=== PATIENT | male | born 1940 | race Caucasian/White ===

== ENCOUNTER 2016-12-17 10:26 | Emergency (ER) | payer OTHER ==
[2016-12-17] MEDS ORDERED: Sodium Chloride 0.9% 10 ML Syringe FLUSH PRN (10:44)
[2016-12-17] MEDS ORDERED: Sodium Chloride 0.9% 1,000 ML IV SCH (10:45)
[2016-12-17] MEDS ORDERED: Atropine 0.1 MG/ML 10 ML Syringe ONE (10:58)
--- NOTE | 2016-12-17 11:19 | EDM.PDOC ---
ED HPI GENERAL MEDICAL PROBLEM - General Chief Complaint: Chest Pain Stated Complaint: CHEST PAIN Time Seen by Provider: 12/17/16 10:32 Source of Information: Reports: Patient, RN Notes Reviewed - History of Present Illness INITIAL COMMENTS - FREE TEXT/NARRATIVE: 76-year-old gentleman resents to our ED this morning with dizziness and shortness of breath. He had been out for his usual morning walk and had already walked about 2 miles with no unusual symptoms and then onset about one hour ago of shortness of breath and dizziness. When hooked to monitor worker second degree heart block was apparent. He has no chest pain with this but continues to feel somewhat lightheaded and dizzy. Continues to feel mildly short of breath. Denies history for hypertension diabetes or known coronary artery disease. Does not smoke. He is never had anything of this nature before. He is not on any hypertensive or cardiac meds at this time. - Related Data Allergies Allergy/AdvReac Type Severity Reaction Status Date / Time No Known Allergies Allergy Verified 12/17/16 10:39 Home Meds: Home Meds Meloxicam [Mobic] 7.5 mg PO DAILY 12/17/16 [History] Past Medical History HEENT History: Reports: Impaired Vision Gastrointestinal History: Reports: GERD Social & Family History - Tobacco Use Smoking Status *Q: Current Every Day Smoker Years of Tobacco use: 33 Packs/Tins Daily: 0.1 - Caffeine Use Caffeine Use: Reports: Coffee ED ROS GENERAL - Review of Systems Review Of Systems: See Below Constitutional: Denies: Fever, Chills, Diaphoresis HEENT: Reports: No Symptoms Respiratory: Reports: Shortness of Breath. Denies: Pleuritic Chest Pain Cardiovascular: Denies: Chest Pain GI/Abdominal: Denies: Abdominal Pain, Nausea, Vomiting Musculoskeletal: Denies: Neck Pain, Shoulder Pain, Arm Pain, Back Pain Skin: Reports: No Symptoms Neurological: Reports: Dizziness, Weakness. Denies: Numbness, Tingling, Trouble Speaking (Mild generalized) ED EXAM, GENERAL - Physical Exam Exam: See Below General Appearance: Alert, Mild Distress Eye Exam: Bilateral Eye: PERRL Throat/Mouth: Normal Inspection, Normal Oropharynx Head: Atraumatic. No: Facial Swelling Neck: Supple, Full Range of Motion, Other (No JVD) Respiratory/Chest: No Respiratory Distress, Lungs Clear, Normal Breath Sounds Cardiovascular: Bradycardia GI/Abdominal: Soft, Non-Tender. No: Guarding Back Exam: No: CVA Tenderness (L), CVA Tenderness (R) Extremities: Normal Inspection. No: Pedal Edema, Leg Pain Neurological: Alert, Oriented, No Motor/Sensory Deficits Skin Exam: Warm, Dry, Normal Color EKG INTERPRETATION EKG Date: 12/17/16 Rhythm: Other (Bradycardia with 2-1 AV block) [place]: Normal P-Wave: Present QRS: RBBB ST-T: Normal Course - Vital Signs Last Recorded V/S: Last Vital Signs Temp 97.8 F 12/17/16 10:30 Pulse 44 L 12/17/16 10:30 Resp 16 12/17/16 10:30 BP 145/63 H 12/17/16 10:30 Pulse Ox 98 12/17/16 10:30 - Orders/Labs/Meds Orders: Active Orders 24 hr Category Date Time Status EKG 12 Lead [EKG Documentation Completion] [RC] STAT Care 12/17/16 10:43 Active Peripheral IV Care [RC] . DIRECTED Care 12/17/16 10:44 Active Chest 1V Frontal [CR] Stat Exams 12/17/16 10:43 Taken Sodium Chloride 0.9% [Normal Saline] 1,000 ml Med 12/17/16 10:45 Active IV ONETIME Sodium Chloride 0.9% [Saline Flush] Med 12/17/16 10:44 Active 10 ml FLUSH ASDIRECTED PRN Peripheral IV Insertion Adult [OM.PC] Stat Oth 12/17/16 10:44 Ordered Medication Orders Sodium Chloride (Normal Saline) 1,000 mls @ 999 mls/hr IV ONETIME [facility] Last Admin: 12/17/16 10:46 Dose: 999 mls/hr Sodium Chloride (Saline Flush) 10 ml FLUSH ASDIRECTED PRN PRN Reason: Keep Vein Open Last Admin: 12/17/16 10:47 Dose: 10 ml Labs: Laboratory Tests 12/17/16 12/17/16 Range/Units 10:35 10:43 WBC 9.30 H (4.23-9.07) K/mm3 RBC 4.37 L (4.63-6.08) M/mm3 Hgb 14.0 (13.7-17.5) gm/L Hct 42.6 (40.1-51.0) % MCV 97.5 H (79.0-92.2) fl MCH 32.0 (25.7-32.2) pg MCHC 32.9 (32.2-35.5) g/dl RDW Std Deviation 49.7 H (35.1-43.9) fL Plt Count 338 H (163-337) K/mm3 MPV 11.5 (9.4-12.3) fl Neut % (Auto) 66.1 (34.0-67.9) % Lymph % (Auto) 21.5 L (21.8-53.1) % [place] % (Auto) 9.2 (5.3-12.2) % Eos % (Auto) 2.5 (0.8-7.0) Baso % (Auto) 0.3 (0.1-1.2) % Neut # (Auto) 6.14 H (1.78-5.38) K/mm3 Lymph # (Auto) 2.00 (1.32-3.57) K/mm3 [place] # (Auto) 0.86 H (0.30-0.82) K/mm3 Eos # (Auto) 0.23 (0.04-0.54) K/mm3 Baso # (Auto) 0.03 (0.01-0.08) K/mm3 Sodium 140 (136-145) mEq/L Potassium 4.2 (3.5-5.1) mEq/L Chloride 106 (98-107) mEq/L Carbon Dioxide 27 (21-32) mEq/L Anion Gap 11.2 (5-15) BUN 12 (7-18) mg/dL Creatinine 1.3 (0.7-1.3) mg/dL Est Cr Clr Drug Dosing 51.47 mL/min Estimated GFR (MDRD) 54 (>60) mL/min BUN/Creatinine Ratio 9.2 L (14-18) Glucose 91 (83-115) mg/dL Calcium 8.9 (8.5-10.1) mg/dL Total Bilirubin 0.8 (0.2-1.0) mg/dL AST 52 H (15-37) U/L ALT 50 (16-63) U/L Alkaline Phosphatase 62 (46-116) U/L Troponin I < 0.017 (0.00-0.056) ng/mL Total Protein 6.7 (6.4-8.2) g/dl Albumin 4.1 (3.4-5.0) g/dl Globulin 2.6 gm/dL Albumin/Globulin Ratio 1.6 (1-2) Meds: Medications Generic Name Dose Route Start Last Admin Trade Name Freq PRN Reason Stop Dose Admin Sodium Chloride 1,000 mls @ 999 mls/hr 12/17/16 10:45 12/17/16 10:46 Normal Saline IV 999 mls/hr ONETIME CARLOS A Administration Sodium Chloride 10 ml 12/17/16 10:44 12/17/16 10:47 Saline Flush FLUSH 10 ml ASDIRECTED PRN Administration Keep Vein Open Discontinued Medications Generic Name Dose Route Start Last Admin Trade Name Freq PRN Reason Stop Dose Admin Atropine Sulfate Confirm 12/17/16 10:58 Atropine 0.1 Mg/Ml Administered 12/17/16 10:59 Dose 1 mg .ROUTE .[facility] ONE - Re-Assessments/Exams Free Text/Narrative Re-Assessment/Exam: 12/17/16 11:35, patient remains in second-degree heart block with rate running 38-40 for the most part. The block is fairly steady 2-1. He continues to have no chest pain. Pressure continues in the 130s to low 140s systolic. He needs a pacemaker. I discussed this with Dr. Ugalde, Hospitalist electronic device repairer for [facility] who does accept patient in transfer. He has dropped his rate down to about 35 on a couple of occasions while working on transfer arrangements. Due to sudden onset and potential for more severe heart block I am going to send him by [facility] helicopter. Departure - Departure Time of Disposition: 11:40 Disposition: Home, Self-Care 01 Condition: Serious Clinical Impression: Second degree heart block Referrals: Citlalli Montes DO [Primary Care Provider] - Forms: ED Department Discharge - My Orders Last 24 Hours: My Active Orders 12/17/16 10:43 EKG 12 Lead [EKG Documentation Completion] [RC] STAT Chest 1V Frontal [CR] Stat 12/17/16 10:44 Peripheral IV Care [RC] . DIRECTED Sodium Chloride 0.9% [Saline Flush] 10 ml FLUSH ASDIRECTED PRN Peripheral IV Insertion Adult [OM.PC] Stat 12/17/16 10:45 Sodium Chloride 0.9% [Normal Saline] 1,000 ml IV ONETIME - Assessment/Plan Last 24 Hours: My Active Orders 12/17/16 10:43 EKG 12 Lead [EKG Documentation Completion] [RC] STAT Chest 1V Frontal [CR] Stat 12/17/16 10:44 Peripheral IV Care [RC] . DIRECTED Sodium Chloride 0.9% [Saline Flush] 10 ml FLUSH ASDIRECTED PRN Peripheral IV Insertion Adult [OM.PC] Stat 12/17/16 10:45 Sodium Chloride 0.9% [Normal Saline] 1,000 ml IV ONETIME
--- NOTE | 2016-12-17 15:15 | CR ---
Chest: Frontal view of the chest was obtained. Comparison: No previous study. Heart size and mediastinum are normal. Lungs are clear. Old healed left clavicle fracture is noted. Mild inferior spurring is seen within the right acromioclavicular joint. Impression: 1. Incidental findings. Nothing acute is appreciated on frontal chest x-ray. Diagnostic code #2
[2016-12-17 16:00] VITALS: BP 142/62
== END 2016-12-17 11:43 | disposition home or self-care (01) ==
LOC: JD.ED 10:26
DX: I44.1 Atrioventricular block, second degree (principal); K21.9 Gastro-esophageal reflux disease without esophagitis; F17.210 Nicotine dependence, cigarettes, uncomplicated
CPT/HCPCS: 36415; 71010; 80053; 84484; 85025; 93005; 96360; 99285; J7040; J7050

== ENCOUNTER 2025-01-01 14:45 | Inpatient (IN) | payer MEDICARE, OTHER ==
[2025-01-01 15:33] LABS: BASOPHILS ABSOLUTE AUTO 0.1 K/mm3 (0.0-0.2); BASOPHILS PERCENT AUTO 0.6 % (0.0-1.0); EOSINOPHILS ABSOLUTE AUTO 0.1 K/mm3 (0.0-0.4); EOSINOPHILS PERCENT AUTO 1.3 % (0.0-6.0); IMMATURE GRAN ABSOLUTE AUTO 0.26 K/mm3 (0.00-0.05); IMMATURE GRAN PERCENT AUTO 2.7 % (0.0-0.4); LYMPHOCYTES ABSOLUTE AUTO 1.7 K/mm3 (1.0-4.8); LYMPHOCYTES PERCENT AUTO 17.3 % (24.0-44.0); MEAN PLATELET VOLUME 10.4 fl (9.4-12.4); MONOCYTES ABSOLUTE AUTO 2.7 K/mm3 (0.0-0.8); MONOCYTES PERCENT AUTO 27.9 % (0.0-8.0); NEUTROPHILS ABSOLUTE AUTO 4.8 K/mm3 (1.8-7.7); NEUTROPHILS PERCENT AUTO 50.2 % (41.0-71.0); NRBC ABSOLUTE 0.08 (0.00-0.02); NRBC PERCENT 0.8 % (0.0-0.2); PLATELET COUNT,PLT 215 K/mm3 (150-400); RED BLOOD CELL COUNT 4.10 M/mm3 (4.52-5.90); WHITE BLOOD CELL COUNT,WBC 9.59 K/mm3 (3.9-11.3)
[2025-01-01 15:53] LABS: A/G RATIO 0.9 (1-2); ALANINE AMINOTRANSFERASE,ALT 35 U/L (16-63); ASPARTATE AMNIOTRANSFERASE,AST 28 U/L (15-37); BILIRUBIN TOTAL 0.5 mg/dL (0.2-1.0); BLOOD UREA NITROGEN,BUN 46 mg/dL (7-18); CARBON DIOXIDE,CO2 28 mEq/L (21-32); CHLORIDE,CL 101 mEq/L (98-107); CREATININE 1.3 mg/dL (0.7-1.3); ESTIMATED GFR 55 mL/min (>60); GLUCOSE RANDOM 109 mg/dL (70-99); POTASSIUM,K 4.6 mEq/L (3.5-5.1); PROTEIN TOTAL,TP 6.8 g/dl (6.4-8.2); SODIUM,NA 140 mEq/L (136-145)
[2025-01-01 15:55] LABS: LACTIC ACID 1.0 mmol/L (0.4-2.0)
[2025-01-01] MEDS: Iopamidol 755 Mg/ML 100 ML Bottle IVPUSH ONE (16:48)
[2025-01-01] MEDS: Sodium Chloride 0.9% 10 ML Syringe FLUSH PRN (16:49)
[2025-01-01] MEDS: Furosemide 20 MG/2 ML VIAL IVPUSH ONE (17:40)
[2025-01-01 18:10] LABS: APPEARANCE,URINE CLEAR (Clear); GLUCOSE,URINE NEGATIVE (Negative); OCCULT BLOOD,URINE TRACE-LYSED (Negative)
[2025-01-01 18:16] LABS: COARSE GRANULAR CASTS,URINE 0-5 /hpf (0-5); EPITHELIAL CELLS,URINE 0-5 /hpf (0-5)
[2025-01-01] MEDS ORDERED: Ondansetron 4 MG/2 ML SDV IV PRN (18:36)
[2025-01-01] MEDS ORDERED: Naloxone 0.4 MG/ML SDV IVPUSH PRN (18:36)
[2025-01-01] MEDS ORDERED: Sennosides/Docusate Sodium 50-8.6 MG Tab PO PRN (18:36)
[2025-01-01] MEDS ORDERED: hydrALAZINE 20 MG/ML SDV IVPUSH PRN (18:41)
[2025-01-01] MEDS ORDERED: Labetalol 100 MG/20 ML MDV IVPUSH PRN (18:41)
[2025-01-01] MEDS: Sodium Chloride 3% Inhalation Soln 4 ML Neb NEB SCH (20:10)
[2025-01-02 04:13] LABS: BASOPHILS ABSOLUTE AUTO 0.1 K/mm3 (0.0-0.2); BASOPHILS PERCENT AUTO 0.6 % (0.0-1.0); EOSINOPHILS ABSOLUTE AUTO 0.1 K/mm3 (0.0-0.4); EOSINOPHILS PERCENT AUTO 0.9 % (0.0-6.0); IMMATURE GRAN ABSOLUTE AUTO 0.31 K/mm3 (0.00-0.05); IMMATURE GRAN PERCENT AUTO 3.2 % (0.0-0.4); LYMPHOCYTES ABSOLUTE AUTO 1.7 K/mm3 (1.0-4.8); LYMPHOCYTES PERCENT AUTO 17.1 % (24.0-44.0); MEAN PLATELET VOLUME 10.7 fl (9.4-12.4); MONOCYTES ABSOLUTE AUTO 2.1 K/mm3 (0.0-0.8); MONOCYTES PERCENT AUTO 21.7 % (0.0-8.0); NEUTROPHILS ABSOLUTE AUTO 5.5 K/mm3 (1.8-7.7); NEUTROPHILS PERCENT AUTO 56.5 % (41.0-71.0); NRBC ABSOLUTE 0.07 (0.00-0.02); NRBC PERCENT 0.7 % (0.0-0.2); PLATELET COUNT,PLT 198 K/mm3 (150-400); RED BLOOD CELL COUNT 3.75 M/mm3 (4.52-5.90); WHITE BLOOD CELL COUNT,WBC 9.79 K/mm3 (3.9-11.3)
[2025-01-02 04:29] LABS: A/G RATIO 0.9 (1-2); ALANINE AMINOTRANSFERASE,ALT 30.0 U/L (16-63); ASPARTATE AMNIOTRANSFERASE,AST 22.0 U/L (15-37); BILIRUBIN TOTAL 0.6 mg/dL (0.2-1.0); BLOOD UREA NITROGEN,BUN 42.0 mg/dL (7-18); CARBON DIOXIDE,CO2 31.0 mEq/L (21-32); CHLORIDE,CL 99.0 mEq/L (98-107); CREATININE 1.3 mg/dL (0.7-1.3); EST CRCL DRUG DOSING (CG) 36.66 mL/min; ESTIMATED GFR 55.0 mL/min (>60); GLUCOSE RANDOM 123.0 mg/dL (70-99); PHOSPHORUS 4.1 mg/dL (2.6-4.7); POTASSIUM,K 4.1 mEq/L (3.5-5.1); PROTEIN TOTAL,TP 6.1 g/dl (6.4-8.2); SODIUM,NA 138.0 mEq/L (136-145)
[2025-01-02] MEDS: Magnesium Sulf/Wat 4 GM/50 mL 4 GM in Premix Bag 1 BAG IV ONE (10:39)
[2025-01-02] MEDS: Iopamidol 612 MG/ML 100 ML Bottle IVPUSH ONE (10:53)
[2025-01-03 09:47] LABS: INTACT PTH 7.0 pg/mL (15-65)
[2025-01-04] MEDS: Amoxicillin/Clavulanate K 875-125 MG Tab PO SCH (12:46)
[2025-01-04 19:46] LABS: HIV 1,2 COMBO AG/AB CIA W/RFLX Negative (Negative)
[2025-01-05 14:46] LABS: PTH-RELATED PEPTIDE LC-MS/MS 2.8 pmol/L (0.0-2.3)
[2025-01-08 06:03] LABS: BASOPHILS ABSOLUTE AUTO 0.1 K/mm3 (0.0-0.2); BASOPHILS PERCENT AUTO 0.7 % (0.0-1.0); EOSINOPHILS ABSOLUTE AUTO 0.2 K/mm3 (0.0-0.4); EOSINOPHILS PERCENT AUTO 1.3 % (0.0-6.0); IMMATURE GRAN ABSOLUTE AUTO 0.99 K/mm3 (0.00-0.05); IMMATURE GRAN PERCENT AUTO 6.2 % (0.0-0.4); LYMPHOCYTES ABSOLUTE AUTO 1.8 K/mm3 (1.0-4.8); LYMPHOCYTES PERCENT AUTO 11.3 % (24.0-44.0); MEAN PLATELET VOLUME 10.4 fl (9.4-12.4); MONOCYTES ABSOLUTE AUTO 3.7 K/mm3 (0.0-0.8); MONOCYTES PERCENT AUTO 23.1 % (0.0-8.0); NEUTROPHILS ABSOLUTE AUTO 9.2 K/mm3 (1.8-7.7); NEUTROPHILS PERCENT AUTO 57.4 % (41.0-71.0); NRBC ABSOLUTE 0.14 (0.00-0.02); NRBC PERCENT 0.9 % (0.0-0.2); PLATELET COUNT,PLT 182 K/mm3 (150-400); RED BLOOD CELL COUNT 3.76 M/mm3 (4.52-5.90); WHITE BLOOD CELL COUNT,WBC 15.96 K/mm3 (3.9-11.3)
[2025-01-08 06:28] LABS: A/G RATIO 0.9 (1-2); ALANINE AMINOTRANSFERASE,ALT 63.0 U/L (16-63); ASPARTATE AMNIOTRANSFERASE,AST 53.0 U/L (15-37); BILIRUBIN TOTAL 0.5 mg/dL (0.2-1.0); BLOOD UREA NITROGEN,BUN 34.0 mg/dL (7-18); CARBON DIOXIDE,CO2 31.0 mEq/L (21-32); CHLORIDE,CL 100.0 mEq/L (98-107); CREATININE 0.9 mg/dL (0.7-1.3); EST CRCL DRUG DOSING (CG) 51.72 mL/min; ESTIMATED GFR 85.0 mL/min (>60); GLUCOSE RANDOM 107.0 mg/dL (70-99); POTASSIUM,K 4.3 mEq/L (3.5-5.1); PROTEIN TOTAL,TP 6.0 g/dl (6.4-8.2); SODIUM,NA 139.0 mEq/L (136-145)
[2025-01-08] MEDS: Magnesium Sulfate 2 GM/50 mL 2 GM in Premix Bag 1 BAG IV ONE (08:30)
[2025-01-08 11:06] VITALS: BP 125/53; PULSE 91
[2025-01-10 11:47] LABS: ALPHA 1 GLOBULIN 0.50 g/dL (0.19-0.46); ALPHA 2 GLOBULIN 0.78 g/dL (0.48-1.05); BETA GLOBULIN 0.64 g/dL (0.48-1.10); GAMMA 0.36 g/dL (0.62-1.51); TOTAL PROTEIN, SERUM 5.3 g/dL (6.3-8.2)
== END 2025-01-08 10:34 | DRG 205 ==
LOC: JD.ED 14:45 → JD.MS 17:39
PROVIDERS: ADMIT Student in an Organized Health Care Education/Training Program; ATTEND Family Medicine
DX: T17.890A Other foreign object in other parts of respiratory tract causing asphyxiation, initial encounter (principal); J18.9 Pneumonia, unspecified organism; J96.01 Acute respiratory failure with hypoxia; M48.54XA Collapsed vertebra, not elsewhere classified, thoracic region, initial encounter for fracture; J98.11 Atelectasis; K40.30 Unilateral inguinal hernia, with obstruction, without gangrene, not specified as recurrent; R64 Cachexia; Z68.1 Body mass index [BMI] 19.9 or less, adult; E83.52 Hypercalcemia; Z79.899 Other long term (current) drug therapy; Z66 Do not resuscitate; H54.7 Unspecified visual loss; K21.9 Gastro-esophageal reflux disease without esophagitis; Z95.0 Presence of cardiac pacemaker; Y92.89 Other specified places as the place of occurrence of the external cause; F17.210 Nicotine dependence, cigarettes, uncomplicated; G89.29 Other chronic pain; R13.10 Dysphagia, unspecified; M89.8X9 Other specified disorders of bone, unspecified site; I44.1 Atrioventricular block, second degree; G31.84 Mild cognitive impairment of uncertain or unknown etiology; N40.0 Benign prostatic hyperplasia without lower urinary tract symptoms; M84.48XA Pathological fracture, other site, initial encounter for fracture
CPT/HCPCS: 36415; 71046; 71275; 80053; 82310; 83605; 83880; 83970; 85025; 86140; 87040 ×2; 87154; 93005; Q9967; 51701; 51798; 74177; 74177-26; 81001; 82542; 82784; 83735; 84100; 84153; 84155; 84165; 84484; 87389; 92610-GN; 93010; 94640; 94667; 94668; 94760; 94761; 97110-GP; 97116-GP; 97162-GP; 97166-GO; 97530-GO; 99223; 99231; 99232; 99233; 99285; A9270-GY; J1650; J1938; J3475; J3490; J7030

== ENCOUNTER 2025-01-14 18:06 | Inpatient (IN) | payer OTHER ==
[2025-01-14] MEDS: Albuterol 0.083% 2.5 MG/3 ML Neb Soln NEB ONE (18:41)
[2025-01-14 18:50] LABS: BASOPHILS ABSOLUTE AUTO 0.0 K/mm3 (0.0-0.2); BASOPHILS PERCENT AUTO 0.4 % (0.0-1.0); EOSINOPHILS ABSOLUTE AUTO 0.1 K/mm3 (0.0-0.4); EOSINOPHILS PERCENT AUTO 0.8 % (0.0-6.0); IMMATURE GRAN ABSOLUTE AUTO 0.19 K/mm3 (0.00-0.05); IMMATURE GRAN PERCENT AUTO 1.7 % (0.0-0.4); LYMPHOCYTES ABSOLUTE AUTO 1.1 K/mm3 (1.0-4.8); LYMPHOCYTES PERCENT AUTO 9.6 % (24.0-44.0); MEAN PLATELET VOLUME 9.7 fl (9.4-12.4); MONOCYTES ABSOLUTE AUTO 2.8 K/mm3 (0.0-0.8); MONOCYTES PERCENT AUTO 24.5 % (0.0-8.0); NEUTROPHILS ABSOLUTE AUTO 7.1 K/mm3 (1.8-7.7); NEUTROPHILS PERCENT AUTO 63.0 % (41.0-71.0); NRBC ABSOLUTE 0.13 (0.00-0.02); NRBC PERCENT 1.2 % (0.0-0.2); PLATELET COUNT,PLT 194 K/mm3 (150-400); RED BLOOD CELL COUNT 3.75 M/mm3 (4.52-5.90); WHITE BLOOD CELL COUNT,WBC 11.30 K/mm3 (3.9-11.3)
[2025-01-14] MEDS: methylPREDNISolone Sodium Succinate 125 MG/2 ML SDV IVPUSH ONE (18:59)
[2025-01-14 19:07] LABS: BASE EXCESS ARTERIAL 3.0 (-2-2.0); BICARBONATE,ARTERIAL 27.1 meq/L (22.0-26.0); O2 SATURATION ARTERIAL 100.0 % (96.0-97.0); PCO2 ARTERIAL 39.0 mmHg (35.0-45.0); PO2 ARTERIAL 120.0 mmHg (80.0-100.0)
[2025-01-14 19:09] LABS: INR 1.16
[2025-01-14 19:10] LABS: PTT,PARTIAL THROMBOPLSTIN TIME 36.9 SECONDS (21.7-31.4)
[2025-01-14 19:15] LABS: LACTIC ACID 0.7 mmol/L (0.4-2.0)
[2025-01-14 19:25] LABS: A/G RATIO 0.9 (1-2); ALANINE AMINOTRANSFERASE,ALT 59.0 U/L (16-63); ASPARTATE AMNIOTRANSFERASE,AST 42.0 U/L (15-37); BILIRUBIN TOTAL 0.5 mg/dL (0.2-1.0); BLOOD UREA NITROGEN,BUN 33.0 mg/dL (7-18); CARBON DIOXIDE,CO2 28.0 mEq/L (21-32); CHLORIDE,CL 101.0 mEq/L (98-107); CREATININE 1.2 mg/dL (0.7-1.3); EST CRCL DRUG DOSING (CG) 47.2 mL/min; ESTIMATED GFR 60.0 mL/min (>60); GLUCOSE RANDOM 151.0 mg/dL (70-99); POTASSIUM,K 4.7 mEq/L (3.5-5.1); PROTEIN TOTAL,TP 6.0 g/dl (6.4-8.2); SODIUM,NA 135.0 mEq/L (136-145); TROPONIN I HIGH SENSITIVITY 35.0 pg/mL (<=76)
[2025-01-14 19:28] LABS: CORONAVIRUS COVID-19 NAA NEGATIVE (NEGATIVE); INFLUENZA A NAA NEGATIVE (NEGATIVE); RESPIRATORY SYNCYTIAL VIR NAA NEGATIVE (NEGATIVE)
[2025-01-14] MEDS: Magnesium Sulfat/D5W 1GM/100ML 1 GM in Premix Bag 1 BAG IV ONE (21:08)
[2025-01-14] MEDS ORDERED: Sodium Chloride 0.9% 10 ML Syringe FLUSH PRN (21:38)
[2025-01-14] MEDS: Iopamidol 755 Mg/ML 100 ML Bottle IVPUSH ONE (22:05)
[2025-01-14] MEDS: Sodium Chloride 0.9% 10 ML Syringe FLUSH PRN (22:05)
[2025-01-15] MEDS ORDERED: Ondansetron 4 MG/2 ML SDV IV PRN (00:38)
[2025-01-15] MEDS ORDERED: Acetaminophen/oxyCODONE 325-5 MG Tab PO PRN (00:38)
[2025-01-15 01:02] LABS: APPEARANCE,URINE CLEAR (Clear); GLUCOSE,URINE NEGATIVE (Negative); OCCULT BLOOD,URINE TRACE-LYSED (Negative)
[2025-01-15 01:14] LABS: EPITHELIAL CELLS,URINE NOT SEEN /hpf (0-5)
[2025-01-15 01:15] LABS: FINE GRANULAR CASTS,URINE 0-5 /lpf (0-5)
[2025-01-15 05:53] LABS: BASOPHILS ABSOLUTE AUTO 0.0 K/mm3 (0.0-0.2); BASOPHILS PERCENT AUTO 0.3 % (0.0-1.0); EOSINOPHILS ABSOLUTE AUTO 0.0 K/mm3 (0.0-0.4); EOSINOPHILS PERCENT AUTO 0.3 % (0.0-6.0); IMMATURE GRAN ABSOLUTE AUTO 0.18 K/mm3 (0.00-0.05); IMMATURE GRAN PERCENT AUTO 1.5 % (0.0-0.4); LYMPHOCYTES ABSOLUTE AUTO 1.1 K/mm3 (1.0-4.8); LYMPHOCYTES PERCENT AUTO 9.6 % (24.0-44.0); MEAN PLATELET VOLUME 10.2 fl (9.4-12.4); MONOCYTES ABSOLUTE AUTO 2.3 K/mm3 (0.0-0.8); MONOCYTES PERCENT AUTO 19.4 % (0.0-8.0); NEUTROPHILS ABSOLUTE AUTO 8.1 K/mm3 (1.8-7.7); NEUTROPHILS PERCENT AUTO 68.9 % (41.0-71.0); NRBC ABSOLUTE 0.07 (0.00-0.02); NRBC PERCENT 0.6 % (0.0-0.2); PLATELET COUNT,PLT 181 K/mm3 (150-400); RED BLOOD CELL COUNT 3.43 M/mm3 (4.52-5.90); WHITE BLOOD CELL COUNT,WBC 11.68 K/mm3 (3.9-11.3)
[2025-01-15 06:34] LABS: A/G RATIO 0.8 (1-2); ALANINE AMINOTRANSFERASE,ALT 58.0 U/L (16-63); ASPARTATE AMNIOTRANSFERASE,AST 39.0 U/L (15-37); BILIRUBIN TOTAL 0.5 mg/dL (0.2-1.0); BLOOD UREA NITROGEN,BUN 28.0 mg/dL (7-18); CARBON DIOXIDE,CO2 28.0 mEq/L (21-32); CHLORIDE,CL 103.0 mEq/L (98-107); CREATININE 1.0 mg/dL (0.7-1.3); EST CRCL DRUG DOSING (CG) 43.52 mL/min; ESTIMATED GFR 75.0 mL/min (>60); GLUCOSE RANDOM 168.0 mg/dL (70-99); POTASSIUM,K 4.5 mEq/L (3.5-5.1); PROTEIN TOTAL,TP 5.6 g/dl (6.4-8.2); SODIUM,NA 139.0 mEq/L (136-145)
[2025-01-15] MEDS: guaiFENesin 100 MG/5 ML Soln 10 ML UD Cup PO SCH (08:50)
[2025-01-15] MEDS ORDERED: Albuterol 0.083% 2.5 MG/3 ML Neb Soln NEB PRN (09:45)
[2025-01-16 09:22] VITALS: BP 115/98; PULSE 105
[2025-01-16] MEDS: Scopalamine 1mg/3day Transdermal Patch TRDERM SCH (09:31)
== END 2025-01-16 10:15 | DRG 189 ==
LOC: JD.ED 18:06 → JD.MS 01-15 00:38
PROVIDERS: ADMIT Student in an Organized Health Care Education/Training Program; ATTEND Family Medicine
PROC: 5A09357 Assistance with Respiratory Ventilation, Less than 24 Consecutive Hours, Continuous Positive Airway Pressure (ICD-10-PCS; principal; 2025-01-14)
DX: J96.20 Acute and chronic respiratory failure, unspecified whether with hypoxia or hypercapnia (principal); Z79.51 Long term (current) use of inhaled steroids; J96.21 Acute and chronic respiratory failure with hypoxia; K40.30 Unilateral inguinal hernia, with obstruction, without gangrene, not specified as recurrent; M84.48XA Pathological fracture, other site, initial encounter for fracture; J44.9 Chronic obstructive pulmonary disease, unspecified; Z51.5 Encounter for palliative care; Z66 Do not resuscitate; R41.0 Disorientation, unspecified; K21.9 Gastro-esophageal reflux disease without esophagitis; H54.7 Unspecified visual loss; Z79.899 Other long term (current) drug therapy; Z87.891 Personal history of nicotine dependence
CPT/HCPCS: 36415; 36600; 71045; 71275; 80053; 82803; 83605; 83690; 83735; 83880; 84484; 85025; 85610; 85730; 87040 ×2; 87637; 93005; 94640 ×3; 94660; 96365; 96367; 96375; 99285; J2543; J2919; J3475; J7030; J7613; J7620 ×2; Q9967; 81001; 94667; 94668; 94761; A9270-GY; J1650